=== PATIENT | male | born 1935 | race Caucasian/White ===

== ENCOUNTER → 2016-06-05 | Outpatient (CLI) | payer MEDICARE, MEDICAID ==
[~2016-06-05] MED LIST: ACET-66 PO; BIMA12.5OS OU; CLOP75 PO; COMB5OS OP; FOLI1 PO; INSNOV SQ; INSU100V12 SQ; LOSA50TA37 PO; METF10002 PO; METO-325 PO; SIMV40 PO; SITA100 PO; SUCR1TAB PO
[2016-06-05 10:27] VITALS: BP 127/60
== END | disposition home or self-care (01) ==
LOC: SRCNTR 10:01
PROVIDERS: ATTEND Internal Medicine Cardiovascular Disease
DX: I10 Essential (primary) hypertension (principal); I25.10 Atherosclerotic heart disease of native coronary artery without angina pectoris; E78.5 Hyperlipidemia, unspecified; E11.9 Type 2 diabetes mellitus without complications; I73.9 Peripheral vascular disease, unspecified; Z95.0 Presence of cardiac pacemaker; Z98.890 Other specified postprocedural states; Z89.511 Acquired absence of right leg below knee; Z89.512 Acquired absence of left leg below knee
CPT/HCPCS: G0463

== ENCOUNTER → 2016-06-19 | Outpatient (CLI) | payer MEDICARE, MEDICAID ==
[~2016-06-19] MED LIST changes: +SIMV-261 PO; -SIMV40 PO
[2016-06-19 10:37] VITALS: BP 122/63
== END | disposition home or self-care (01) ==
LOC: SRCNTR 09:49
PROVIDERS: ATTEND Internal Medicine Cardiovascular Disease
DX: Z45.018 Encounter for adjustment and management of other part of cardiac pacemaker (principal)
CPT/HCPCS: G0463

== ENCOUNTER → 2016-08-05 | Outpatient (CLI) | payer MEDICARE, MEDICAID ==
[2016-08-05 10:16] VITALS: BP 144/66
== END | disposition home or self-care (01) ==
LOC: SRCNTR 10:09
PROVIDERS: ATTEND Internal Medicine Cardiovascular Disease
DX: E11.9 Type 2 diabetes mellitus without complications (principal); I10 Essential (primary) hypertension; I25.10 Atherosclerotic heart disease of native coronary artery without angina pectoris; E78.5 Hyperlipidemia, unspecified; I73.9 Peripheral vascular disease, unspecified; Z95.0 Presence of cardiac pacemaker; Z89.511 Acquired absence of right leg below knee; Z89.612 Acquired absence of left leg above knee; Z98.890 Other specified postprocedural states
CPT/HCPCS: G0463

== ENCOUNTER → 2016-10-05 | Outpatient (CLI) | payer MEDICARE, MEDICAID ==
[2016-10-05 10:39] VITALS: BP 117/53
== END | disposition home or self-care (01) ==
LOC: SRCNTR 10:30
PROVIDERS: ATTEND Internal Medicine Cardiovascular Disease
DX: E11.9 Type 2 diabetes mellitus without complications (principal); E78.5 Hyperlipidemia, unspecified; I10 Essential (primary) hypertension; I25.10 Atherosclerotic heart disease of native coronary artery without angina pectoris; I73.9 Peripheral vascular disease, unspecified; Z95.0 Presence of cardiac pacemaker; Z89.612 Acquired absence of left leg above knee; Z89.511 Acquired absence of right leg below knee; Z79.4 Long term (current) use of insulin
CPT/HCPCS: G0463

== ENCOUNTER → 2016-12-07 | Outpatient (CLI) | payer MEDICARE, MEDICAID ==
[~2016-12-07] MED LIST changes: -METO-325 PO; +METO-558 PO; +TAMS0.4C32 PO
[2016-12-07 10:08] VITALS: BP 122/59
== END | disposition home or self-care (01) ==
LOC: SRCNTR 09:57
PROVIDERS: ATTEND Internal Medicine Cardiovascular Disease
DX: E11.9 Type 2 diabetes mellitus without complications (principal); E78.5 Hyperlipidemia, unspecified; I10 Essential (primary) hypertension; I25.10 Atherosclerotic heart disease of native coronary artery without angina pectoris; I73.9 Peripheral vascular disease, unspecified; Z79.4 Long term (current) use of insulin; Z89.511 Acquired absence of right leg below knee; Z89.612 Acquired absence of left leg above knee; Z95.0 Presence of cardiac pacemaker
CPT/HCPCS: G0463

== ENCOUNTER → 2016-12-18 | Outpatient (CLI) | payer MEDICARE, MEDICAID ==
[2016-12-18 09:56] VITALS: BP 128/63
== END | disposition home or self-care (01) ==
LOC: SRCNTR 09:49
PROVIDERS: ATTEND Internal Medicine Cardiovascular Disease
DX: Z45.018 Encounter for adjustment and management of other part of cardiac pacemaker (principal)
CPT/HCPCS: G0463

== ENCOUNTER → 2017-02-17 | Outpatient (CLI) | payer MEDICARE, MEDICAID ==
[2017-02-17 10:06] VITALS: BP 119/61
== END | disposition home or self-care (01) ==
LOC: SRCNTR 10:05
PROVIDERS: ATTEND Internal Medicine Cardiovascular Disease
DX: I10 Essential (primary) hypertension (principal); I25.10 Atherosclerotic heart disease of native coronary artery without angina pectoris; E78.5 Hyperlipidemia, unspecified; E11.51 Type 2 diabetes mellitus with diabetic peripheral angiopathy without gangrene; E03.9 Hypothyroidism, unspecified; I73.9 Peripheral vascular disease, unspecified; Z79.4 Long term (current) use of insulin; Z89.511 Acquired absence of right leg below knee; Z89.612 Acquired absence of left leg above knee; Z95.0 Presence of cardiac pacemaker
CPT/HCPCS: G0463

== ENCOUNTER → 2017-04-21 | Outpatient (CLI) | payer MEDICARE, MEDICAID ==
[~2017-04-21] MED LIST changes: -METF10002 PO
[2017-04-21 11:05] VITALS: BP 143/68
== END | disposition home or self-care (01) ==
LOC: SRCNTR 10:46
PROVIDERS: ATTEND Internal Medicine Cardiovascular Disease
DX: I10 Essential (primary) hypertension (principal); E11.51 Type 2 diabetes mellitus with diabetic peripheral angiopathy without gangrene; E78.5 Hyperlipidemia, unspecified; I25.10 Atherosclerotic heart disease of native coronary artery without angina pectoris; Z79.4 Long term (current) use of insulin; Z89.511 Acquired absence of right leg below knee; Z89.612 Acquired absence of left leg above knee; Z95.0 Presence of cardiac pacemaker
CPT/HCPCS: G0463

== ENCOUNTER → 2017-06-18 | Outpatient (CLI) | payer MEDICARE, MEDICAID ==
[2017-06-18 10:37] VITALS: BP 140/58
== END | disposition home or self-care (01) ==
LOC: SRCNTR 10:05
PROVIDERS: ATTEND Internal Medicine Cardiovascular Disease
DX: Z45.018 Encounter for adjustment and management of other part of cardiac pacemaker (principal)
CPT/HCPCS: 93288; G0463

== ENCOUNTER → 2017-06-21 | Outpatient (CLI) | payer MEDICARE, MEDICAID ==
[2017-06-21 10:40] VITALS: BP 120/54
== END | disposition home or self-care (01) ==
LOC: SRCNTR 10:34
PROVIDERS: ATTEND Internal Medicine Cardiovascular Disease
DX: I25.10 Atherosclerotic heart disease of native coronary artery without angina pectoris (principal); I12.9 Hypertensive chronic kidney disease with stage 1 through stage 4 chronic kidney disease, or unspecified chronic kidney disease; N18.9 Chronic kidney disease, unspecified; E78.5 Hyperlipidemia, unspecified; E11.51 Type 2 diabetes mellitus with diabetic peripheral angiopathy without gangrene; Z79.4 Long term (current) use of insulin; Z89.511 Acquired absence of right leg below knee; Z89.612 Acquired absence of left leg above knee; Z95.0 Presence of cardiac pacemaker
CPT/HCPCS: G0463

== ENCOUNTER → 2017-08-23 | Outpatient (CLI) | payer MEDICARE, MEDICAID ==
[2017-08-23 11:10] VITALS: BP 127/56
== END | disposition home or self-care (01) ==
LOC: SRCNTR 10:58
PROVIDERS: ATTEND Internal Medicine Cardiovascular Disease
DX: I10 Essential (primary) hypertension (principal); I25.10 Atherosclerotic heart disease of native coronary artery without angina pectoris; E11.9 Type 2 diabetes mellitus without complications; E78.5 Hyperlipidemia, unspecified; I73.9 Peripheral vascular disease, unspecified; Z95.0 Presence of cardiac pacemaker
CPT/HCPCS: G0463

== ENCOUNTER → 2017-12-17 | Outpatient (CLI) | payer MEDICARE, MEDICAID ==
[~2017-12-17] MED LIST changes: +LOSA50TA25 PO; -LOSA50TA37 PO; +METF-446 PO; +MULT-1259 PO
[2017-12-17 15:05] VITALS: BP 128/52
== END | disposition home or self-care (01) ==
LOC: SRCNTR 09:57
PROVIDERS: ATTEND Internal Medicine Cardiovascular Disease
DX: Z45.018 Encounter for adjustment and management of other part of cardiac pacemaker (principal)
CPT/HCPCS: G0463

== ENCOUNTER → 2017-12-24 | Outpatient (CLI) | payer MEDICARE, MEDICAID ==
[2017-12-24 10:37] VITALS: BP 117/59
== END | disposition home or self-care (01) ==
LOC: SRCNTR 10:33
PROVIDERS: ATTEND Internal Medicine Cardiovascular Disease
DX: Z23 Encounter for immunization (principal); I25.10 Atherosclerotic heart disease of native coronary artery without angina pectoris; E11.9 Type 2 diabetes mellitus without complications; I10 Essential (primary) hypertension; E78.5 Hyperlipidemia, unspecified; I73.9 Peripheral vascular disease, unspecified; Z89.612 Acquired absence of left leg above knee; Z95.0 Presence of cardiac pacemaker
CPT/HCPCS: 90686; 96372; G0463

== ENCOUNTER → 2018-02-23 | Outpatient (CLI) | payer MEDICARE, MEDICAID ==
[~2018-02-23] MED LIST changes: -LOSA50TA25 PO; +LOSA50TA64 PO
[2018-02-23 10:21] VITALS: BP 118/52
== END | disposition home or self-care (01) ==
LOC: SRCNTR 10:17
PROVIDERS: ATTEND Internal Medicine Cardiovascular Disease
DX: I25.10 Atherosclerotic heart disease of native coronary artery without angina pectoris (principal); E78.5 Hyperlipidemia, unspecified; E11.51 Type 2 diabetes mellitus with diabetic peripheral angiopathy without gangrene; Z95.0 Presence of cardiac pacemaker; I10 Essential (primary) hypertension; Z89.612 Acquired absence of left leg above knee; Z89.511 Acquired absence of right leg below knee
CPT/HCPCS: G0463

== ENCOUNTER → 2018-05-02 | Outpatient (CLI) | payer MEDICARE, MEDICAID ==
[~2018-05-02] MED LIST changes: -CLOP75 PO; +CLOP75TA17 PO
[2018-05-02 11:43] VITALS: BP 116/54
== END | disposition home or self-care (01) ==
LOC: SRCNTR 11:12
PROVIDERS: ATTEND Internal Medicine Cardiovascular Disease
DX: E78.5 Hyperlipidemia, unspecified (principal); E11.9 Type 2 diabetes mellitus without complications; I73.9 Peripheral vascular disease, unspecified; I10 Essential (primary) hypertension; I25.10 Atherosclerotic heart disease of native coronary artery without angina pectoris; Z95.0 Presence of cardiac pacemaker
CPT/HCPCS: G0463

== ENCOUNTER → 2018-05-27 | Outpatient (CLI) | payer MEDICARE, MEDICAID ==
[~2018-05-27] MED LIST changes: -CLOP75TA17 PO; +CLOP75TA3 PO
[2018-05-27 11:55] VITALS: BP 114/47
== END | disposition home or self-care (01) ==
LOC: SRCNTR 10:14
PROVIDERS: ATTEND Internal Medicine Cardiovascular Disease
DX: Z45.09 Encounter for adjustment and management of other cardiac device (principal)
CPT/HCPCS: G0463

== ENCOUNTER → 2019-01-04 | Outpatient (CLI) | payer MEDICARE, MEDICAID ==
[~2019-01-04] MED LIST changes: +TAMS-13 PO; -TAMS0.4C32 PO
[2019-01-04 10:18] VITALS: BP 98/56
== END | disposition home or self-care (01) ==
LOC: SRCNTR 10:18
PROVIDERS: ATTEND Internal Medicine Cardiovascular Disease
DX: I25.10 Atherosclerotic heart disease of native coronary artery without angina pectoris (principal); I10 Essential (primary) hypertension; E11.9 Type 2 diabetes mellitus without complications; E78.5 Hyperlipidemia, unspecified; Z95.0 Presence of cardiac pacemaker; I73.9 Peripheral vascular disease, unspecified
CPT/HCPCS: G0463

== ENCOUNTER → 2019-04-04 | Outpatient (CLI) | payer MEDICARE, MEDICAID ==
[2019-04-04 14:17] VITALS: BP 107/48
== END | disposition home or self-care (01) ==
LOC: SRCNTR 14:15
PROVIDERS: ATTEND Internal Medicine Cardiovascular Disease
DX: I25.10 Atherosclerotic heart disease of native coronary artery without angina pectoris (principal); I10 Essential (primary) hypertension; I11.9 Hypertensive heart disease without heart failure; E78.5 Hyperlipidemia, unspecified; I73.9 Peripheral vascular disease, unspecified; Z95.0 Presence of cardiac pacemaker
CPT/HCPCS: G0463

== ENCOUNTER → 2019-06-23 | Outpatient (CLI) | payer MEDICARE, MEDICAID ==
[~2019-06-23] MED LIST changes: +LOSA-88 PO; -LOSA50TA64 PO
== END | disposition home or self-care (01) ==
LOC: SRCNTR 11:57
PROVIDERS: ATTEND Internal Medicine Cardiovascular Disease
DX: I25.10 Atherosclerotic heart disease of native coronary artery without angina pectoris (principal); I73.9 Peripheral vascular disease, unspecified; I10 Essential (primary) hypertension; E11.9 Type 2 diabetes mellitus without complications; E78.5 Hyperlipidemia, unspecified; Z48.812 Encounter for surgical aftercare following surgery on the circulatory system; Z95.810 Presence of automatic (implantable) cardiac defibrillator; Z79.84 Long term (current) use of oral hypoglycemic drugs; Z79.899 Other long term (current) drug therapy; Z98.890 Other specified postprocedural states; Z89.612 Acquired absence of left leg above knee; Z89.511 Acquired absence of right leg below knee
CPT/HCPCS: G0463

== ENCOUNTER → 2019-08-18 | Outpatient (CLI) | payer MEDICARE, MEDICAID ==
[~2019-08-18] MED LIST changes: +FOLI-130 PO; -FOLI1 PO; -LOSA-88 PO; +LOSA50TA37 PO
[2019-08-18 12:45] VITALS: BP 107/78
== END | disposition home or self-care (01) ==
LOC: SRCNTR 10:15
PROVIDERS: ATTEND Internal Medicine Cardiovascular Disease
DX: I25.10 Atherosclerotic heart disease of native coronary artery without angina pectoris (principal)
CPT/HCPCS: G0463

== ENCOUNTER → 2020-01-17 | Outpatient (CLI) | payer MEDICARE, MEDICAID ==
[~2020-01-17] MED LIST changes: +CLOP-31 PO; -CLOP75TA3 PO
[2020-01-17 11:29] VITALS: BP 109/5
== END | disposition home or self-care (01) ==
LOC: SRCNTR 11:10
PROVIDERS: ATTEND Internal Medicine Cardiovascular Disease
DX: I25.10 Atherosclerotic heart disease of native coronary artery without angina pectoris (principal); I10 Essential (primary) hypertension; E11.9 Type 2 diabetes mellitus without complications; I73.9 Peripheral vascular disease, unspecified; Z89.511 Acquired absence of right leg below knee; Z95.0 Presence of cardiac pacemaker
CPT/HCPCS: G0463; Z7500

== ENCOUNTER → 2020-02-16 | Outpatient (CLI) | payer MEDICARE, MEDICAID ==
[2020-02-16 10:00] VITALS: BP 114/57
== END | disposition home or self-care (01) ==
LOC: SRCNTR 09:37
PROVIDERS: ATTEND Internal Medicine Cardiovascular Disease
DX: Z45.010 Encounter for checking and testing of cardiac pacemaker pulse generator [battery] (principal)
CPT/HCPCS: 93288; G0463

== ENCOUNTER → 2020-04-03 | Outpatient (CLI) | payer MEDICARE, MEDICAID ==
[~2020-04-03] MED LIST changes: -CLOP-31 PO; +CLOP75TA60 PO
[2020-04-03 10:40] VITALS: BP 108/45
== END | disposition home or self-care (01) ==
LOC: SRCNTR 10:17
PROVIDERS: ATTEND Internal Medicine Cardiovascular Disease
DX: I25.10 Atherosclerotic heart disease of native coronary artery without angina pectoris (principal); E11.9 Type 2 diabetes mellitus without complications; I10 Essential (primary) hypertension; E78.5 Hyperlipidemia, unspecified; I73.9 Peripheral vascular disease, unspecified; N40.1 Benign prostatic hyperplasia with lower urinary tract symptoms; R33.8 Other retention of urine; Z95.0 Presence of cardiac pacemaker; Z98.890 Other specified postprocedural states
CPT/HCPCS: G0463; Z7500

== ENCOUNTER → 2020-06-05 | Outpatient (CLI) | payer MEDICARE, MEDICAID ==
[2020-06-05 10:05] VITALS: BP 129/61
== END | disposition home or self-care (01) ==
LOC: SRCNTR 09:48
PROVIDERS: ATTEND Internal Medicine Cardiovascular Disease
DX: I10 Essential (primary) hypertension (principal); E11.9 Type 2 diabetes mellitus without complications; E78.5 Hyperlipidemia, unspecified; I25.10 Atherosclerotic heart disease of native coronary artery without angina pectoris; I73.9 Peripheral vascular disease, unspecified; N40.1 Benign prostatic hyperplasia with lower urinary tract symptoms; R33.8 Other retention of urine; Z89.612 Acquired absence of left leg above knee; Z89.511 Acquired absence of right leg below knee; Z95.0 Presence of cardiac pacemaker
CPT/HCPCS: G0463; Z7500

== ENCOUNTER → 2020-08-07 | Outpatient (CLI) | payer MEDICARE, MEDICAID ==
[~2020-08-07] MED LIST changes: +FERR-89 PO; -INSNOV SQ
[2020-08-07 10:27] VITALS: BP 125/52
== END | disposition home or self-care (01) ==
LOC: SRCNTR 10:00
PROVIDERS: ATTEND Internal Medicine Cardiovascular Disease
DX: I10 Essential (primary) hypertension (principal); E78.5 Hyperlipidemia, unspecified; I73.9 Peripheral vascular disease, unspecified; I25.10 Atherosclerotic heart disease of native coronary artery without angina pectoris; N40.0 Benign prostatic hyperplasia without lower urinary tract symptoms; Z89.612 Acquired absence of left leg above knee; Z89.421 Acquired absence of other right toe(s)
CPT/HCPCS: G0463

== ENCOUNTER → 2020-09-11 | Outpatient (CLI) | payer MEDICARE, MEDICAID ==
[2020-09-11 10:26] VITALS: BP 131/52
== END | disposition home or self-care (01) ==
LOC: SRCNTR 09:33
PROVIDERS: ATTEND Internal Medicine Cardiovascular Disease
DX: Z45.010 Encounter for checking and testing of cardiac pacemaker pulse generator [battery] (principal)
CPT/HCPCS: G0463

== ENCOUNTER → 2020-10-09 | Outpatient (CLI) | payer MEDICARE, MEDICAID ==
[~2020-10-09] MED LIST changes: +APIX2.5T PO; +CYCL1DRO6 OU
[2020-10-09 10:12] VITALS: BP 107/54
== END | disposition home or self-care (01) ==
LOC: SRCNTR 09:38
PROVIDERS: ATTEND Internal Medicine Cardiovascular Disease
DX: I25.10 Atherosclerotic heart disease of native coronary artery without angina pectoris (principal); I48.0 Paroxysmal atrial fibrillation; E11.9 Type 2 diabetes mellitus without complications; I10 Essential (primary) hypertension; E78.5 Hyperlipidemia, unspecified; I73.9 Peripheral vascular disease, unspecified; N40.0 Benign prostatic hyperplasia without lower urinary tract symptoms; Z95.0 Presence of cardiac pacemaker; Z89.511 Acquired absence of right leg below knee; Z89.612 Acquired absence of left leg above knee; Z95.1 Presence of aortocoronary bypass graft; Z79.84 Long term (current) use of oral hypoglycemic drugs; Z79.899 Other long term (current) drug therapy
CPT/HCPCS: G0463

== ENCOUNTER → 2020-11-25 | Outpatient (CLI) | payer MEDICARE, MEDICAID ==
[~2020-11-25] MED LIST changes: -BIMA12.5OS OU; +BIMA2.5D4 OU; -CLOP75TA60 PO; +INFLUENZA VIRUS VACCINE QVS 2021-22 (6MO+)/PF 60 MCG/0.5 ML SYRINGE IM. ONE
[2020-11-25 10:34] VITALS: BP 116/48
== END | disposition home or self-care (01) ==
LOC: SRCNTR 09:41
PROVIDERS: ATTEND Internal Medicine Cardiovascular Disease
DX: I10 Essential (primary) hypertension (principal); I25.10 Atherosclerotic heart disease of native coronary artery without angina pectoris; E11.9 Type 2 diabetes mellitus without complications; E78.5 Hyperlipidemia, unspecified; I48.0 Paroxysmal atrial fibrillation; I73.9 Peripheral vascular disease, unspecified; Z89.612 Acquired absence of left leg above knee; Z89.611 Acquired absence of right leg above knee; Z95.0 Presence of cardiac pacemaker
CPT/HCPCS: 90686; 96372; G0463

== ENCOUNTER → 2021-01-29 | Outpatient (CLI) | payer MEDICARE, MEDICAID ==
[~2021-01-29] MED LIST changes: +DIPH-654 PO; -INFLUENZA VIRUS VACCINE QVS 2021-22 (6MO+)/PF 60 MCG/0.5 ML SYRINGE IM. ONE
[2021-01-29 10:59] VITALS: BP 132/52
== END | disposition home or self-care (01) ==
LOC: SRCNTR 10:35
PROVIDERS: ATTEND Internal Medicine Cardiovascular Disease
DX: I25.10 Atherosclerotic heart disease of native coronary artery without angina pectoris (principal); I48.0 Paroxysmal atrial fibrillation; E11.9 Type 2 diabetes mellitus without complications; I10 Essential (primary) hypertension; E78.5 Hyperlipidemia, unspecified; I73.9 Peripheral vascular disease, unspecified; N40.0 Benign prostatic hyperplasia without lower urinary tract symptoms; Z89.612 Acquired absence of left leg above knee; Z89.511 Acquired absence of right leg below knee; Z95.0 Presence of cardiac pacemaker
CPT/HCPCS: G0463

== ENCOUNTER → 2021-03-21 | Outpatient (CLI) | payer MEDICARE, MEDICAID ==
[~2021-03-21] MED LIST changes: +LOSA-382 PO; -LOSA50TA37 PO
== END | disposition home or self-care (01) ==
LOC: SRCNTR 09-04 09:56
PROVIDERS: ATTEND Internal Medicine Cardiovascular Disease
DX: Z45.010 Encounter for checking and testing of cardiac pacemaker pulse generator [battery] (principal)
CPT/HCPCS: G0463; Z7500

== ENCOUNTER → 2021-05-02 | Outpatient (CLI) | payer MEDICARE, MEDICAID ==
[2021-05-02 10:59] VITALS: BP 121/49
== END | disposition home or self-care (01) ==
LOC: SRCNTR 10:44
PROVIDERS: ATTEND Internal Medicine Cardiovascular Disease
DX: I25.10 Atherosclerotic heart disease of native coronary artery without angina pectoris (principal); E11.9 Type 2 diabetes mellitus without complications; I10 Essential (primary) hypertension; E78.5 Hyperlipidemia, unspecified; I73.9 Peripheral vascular disease, unspecified; N40.0 Benign prostatic hyperplasia without lower urinary tract symptoms; Z89.522 Acquired absence of left knee; Z89.521 Acquired absence of right knee; Z95.0 Presence of cardiac pacemaker
CPT/HCPCS: G0463; Z7500

== ENCOUNTER → 2021-06-13 | Outpatient (CLI) | payer MEDICARE, MEDICAID ==
[2021-06-13 11:35] VITALS: BP 104/34
== END | disposition home or self-care (01) ==
LOC: SRCNTR 10:38
PROVIDERS: ATTEND Internal Medicine Cardiovascular Disease
DX: I10 Essential (primary) hypertension (principal); E78.5 Hyperlipidemia, unspecified; I73.9 Peripheral vascular disease, unspecified; E11.9 Type 2 diabetes mellitus without complications; I48.0 Paroxysmal atrial fibrillation; I25.10 Atherosclerotic heart disease of native coronary artery without angina pectoris; Z95.0 Presence of cardiac pacemaker; Z89.511 Acquired absence of right leg below knee; Z89.612 Acquired absence of left leg above knee
CPT/HCPCS: G0463

== ENCOUNTER → 2021-08-27 | Outpatient (CLI) | payer MEDICARE, MEDICAID ==
[~2021-08-27] MED LIST changes: -FERR-89 PO; +FERR325T27 PO
[2021-08-27 11:36] VITALS: BP 122/55
== END | disposition home or self-care (01) ==
LOC: SRCNTR 11:22
PROVIDERS: ATTEND Internal Medicine Cardiovascular Disease
DX: Z09 Encounter for follow-up examination after completed treatment for conditions other than malignant neoplasm (principal); I10 Essential (primary) hypertension; E11.9 Type 2 diabetes mellitus without complications; E78.5 Hyperlipidemia, unspecified; I73.9 Peripheral vascular disease, unspecified; I25.10 Atherosclerotic heart disease of native coronary artery without angina pectoris; I48.0 Paroxysmal atrial fibrillation; Z95.0 Presence of cardiac pacemaker; Z89.511 Acquired absence of right leg below knee; Z89.612 Acquired absence of left leg above knee
CPT/HCPCS: G0463

== ENCOUNTER → 2021-10-01 | Outpatient (CLI) | payer MEDICARE, MEDICAID ==
[2021-10-01 10:05] VITALS: BP 102/47
== END | disposition home or self-care (01) ==
LOC: SRCNTR 09:43
PROVIDERS: ATTEND Internal Medicine Cardiovascular Disease
DX: Z45.010 Encounter for checking and testing of cardiac pacemaker pulse generator [battery] (principal)
CPT/HCPCS: G0463

== ENCOUNTER → 2021-10-29 | Outpatient (CLI) | payer MEDICARE, MEDICAID ==
[2021-10-29 09:43] VITALS: BP 116/48
== END | disposition home or self-care (01) ==
LOC: SRCNTR 09:01
PROVIDERS: ATTEND Internal Medicine Cardiovascular Disease
DX: I10 Essential (primary) hypertension (principal); Z09 Encounter for follow-up examination after completed treatment for conditions other than malignant neoplasm; E11.9 Type 2 diabetes mellitus without complications; I48.0 Paroxysmal atrial fibrillation; I25.10 Atherosclerotic heart disease of native coronary artery without angina pectoris; E78.5 Hyperlipidemia, unspecified; I73.9 Peripheral vascular disease, unspecified; Z95.0 Presence of cardiac pacemaker; Z89.612 Acquired absence of left leg above knee; Z89.511 Acquired absence of right leg below knee
CPT/HCPCS: G0463; Z7500

== ENCOUNTER → 2022-01-05 | Outpatient (CLI) | payer MEDICARE, MEDICAID ==
[2022-01-05 14:17] VITALS: BP 120/49
== END | disposition home or self-care (01) ==
LOC: SRCNTR 11:29
PROVIDERS: ATTEND Internal Medicine Cardiovascular Disease
DX: Z45.010 Encounter for checking and testing of cardiac pacemaker pulse generator [battery] (principal)
CPT/HCPCS: G0463; Z7500

== ENCOUNTER → 2022-01-07 | Outpatient (CLI) | payer MEDICARE, MEDICAID ==
[2022-01-07 10:21] VITALS: BP 116/44
== END | disposition home or self-care (01) ==
LOC: SRCNTR 09:52
PROVIDERS: ATTEND Internal Medicine Cardiovascular Disease
DX: I10 Essential (primary) hypertension (principal); Z09 Encounter for follow-up examination after completed treatment for conditions other than malignant neoplasm; I25.10 Atherosclerotic heart disease of native coronary artery without angina pectoris; E11.9 Type 2 diabetes mellitus without complications; I48.0 Paroxysmal atrial fibrillation; E78.5 Hyperlipidemia, unspecified; I73.9 Peripheral vascular disease, unspecified; Z95.0 Presence of cardiac pacemaker; Z89.612 Acquired absence of left leg above knee; Z89.511 Acquired absence of right leg below knee
CPT/HCPCS: G0463; Z7500

== ENCOUNTER → 2022-03-11 | Outpatient (CLI) | payer MEDICARE, MEDICAID ==
[~2022-03-11] MED LIST changes: -CYCL1DRO6 OU; +DOCU-385 PO; +FINA-27 PO
[2022-03-11 10:50] VITALS: BP 117/57
== END | disposition home or self-care (01) ==
LOC: SRCNTR 10:27
PROVIDERS: ATTEND Internal Medicine Cardiovascular Disease
DX: Z09 Encounter for follow-up examination after completed treatment for conditions other than malignant neoplasm (principal); I25.10 Atherosclerotic heart disease of native coronary artery without angina pectoris; I48.0 Paroxysmal atrial fibrillation; E11.9 Type 2 diabetes mellitus without complications; I10 Essential (primary) hypertension; E78.5 Hyperlipidemia, unspecified; I73.9 Peripheral vascular disease, unspecified; Z95.0 Presence of cardiac pacemaker
CPT/HCPCS: G0463

== ENCOUNTER → 2022-04-06 | Outpatient (CLI) | payer MEDICARE, MEDICAID ==
[2022-04-06 10:28] VITALS: BP 112/54
== END | disposition home or self-care (01) ==
LOC: SRCNTR 09:56
PROVIDERS: ATTEND Internal Medicine Cardiovascular Disease
DX: Z45.010 Encounter for checking and testing of cardiac pacemaker pulse generator [battery] (principal); I25.10 Atherosclerotic heart disease of native coronary artery without angina pectoris; I48.0 Paroxysmal atrial fibrillation; I10 Essential (primary) hypertension; E11.9 Type 2 diabetes mellitus without complications; E78.5 Hyperlipidemia, unspecified; Z89.612 Acquired absence of left leg above knee; Z89.512 Acquired absence of left leg below knee
CPT/HCPCS: 93288; G0463

== ENCOUNTER → 2022-04-20 | Outpatient (CLI) | payer MEDICARE, MEDICAID ==
[2022-04-20 10:20] VITALS: BP 130/71
== END | disposition home or self-care (01) ==
LOC: SRCNTR 10:09
PROVIDERS: ATTEND Internal Medicine Cardiovascular Disease
DX: Z09 Encounter for follow-up examination after completed treatment for conditions other than malignant neoplasm (principal); I25.10 Atherosclerotic heart disease of native coronary artery without angina pectoris; I48.0 Paroxysmal atrial fibrillation; E11.9 Type 2 diabetes mellitus without complications; I10 Essential (primary) hypertension; E78.5 Hyperlipidemia, unspecified; I73.9 Peripheral vascular disease, unspecified; Z95.0 Presence of cardiac pacemaker; Z89.612 Acquired absence of left leg above knee; Z89.511 Acquired absence of right leg below knee
CPT/HCPCS: G0463

== ENCOUNTER → 2022-05-18 | Outpatient (CLI) | payer MEDICARE, MEDICAID ==
[2022-05-18 10:02] VITALS: BP 110/47
== END | disposition home or self-care (01) ==
LOC: SRCNTR 09:36
PROVIDERS: ATTEND Internal Medicine Cardiovascular Disease
DX: I25.10 Atherosclerotic heart disease of native coronary artery without angina pectoris (principal); I48.0 Paroxysmal atrial fibrillation; E11.9 Type 2 diabetes mellitus without complications; I10 Essential (primary) hypertension; E78.5 Hyperlipidemia, unspecified; I73.9 Peripheral vascular disease, unspecified; R41.81 Age-related cognitive decline; Z95.0 Presence of cardiac pacemaker; Z89.612 Acquired absence of left leg above knee; Z89.511 Acquired absence of right leg below knee
CPT/HCPCS: G0463; Z7500

== ENCOUNTER → 2022-07-31 | Outpatient (CLI) | payer MEDICARE, MEDICAID ==
[~2022-07-31] MED LIST changes: -SUCR1TAB PO
[2022-07-31 11:25] VITALS: BP 122/56
== END | disposition home or self-care (01) ==
LOC: SRCNTR 10:41
PROVIDERS: ATTEND Internal Medicine Cardiovascular Disease
DX: Z09 Encounter for follow-up examination after completed treatment for conditions other than malignant neoplasm (principal); I25.10 Atherosclerotic heart disease of native coronary artery without angina pectoris; I48.0 Paroxysmal atrial fibrillation; E11.9 Type 2 diabetes mellitus without complications; I10 Essential (primary) hypertension; E78.5 Hyperlipidemia, unspecified; I73.9 Peripheral vascular disease, unspecified; R41.81 Age-related cognitive decline; Z95.0 Presence of cardiac pacemaker; Z89.612 Acquired absence of left leg above knee; Z89.511 Acquired absence of right leg below knee
CPT/HCPCS: G0463

== ENCOUNTER → 2022-10-19 | Outpatient (CLI) | payer MEDICARE, MEDICAID ==
[~2022-10-19] VITALS: Ht 162.6 cm; Wt 76.0 kg
[~2022-10-19] MED LIST changes: +INSNPH SQ
[2022-10-19 10:24] VITALS: BP 107/58; PULSE 78; RESP 18; TEMP 98.8; O2SAT 98
== END | disposition home or self-care (01) ==
LOC: SRCNTR 09:52
PROVIDERS: ATTEND Internal Medicine Cardiovascular Disease
DX: Z45.010 Encounter for checking and testing of cardiac pacemaker pulse generator [battery] (principal)
CPT/HCPCS: G0463

== ENCOUNTER → 2022-12-07 | Outpatient (CLI) | payer MEDICARE, MEDICAID ==
[~2022-12-07] MED LIST changes: +RIFAX550 PO; -TAMS-13 PO; +TAMS0.4C34 PO
[2022-12-07 10:51] VITALS: BP 130/70; PULSE 64; RESP 16; TEMP 97.9; O2SAT 98
== END | disposition home or self-care (01) ==
LOC: SRCNTR 10:33
PROVIDERS: ATTEND Internal Medicine Cardiovascular Disease
DX: Z09 Encounter for follow-up examination after completed treatment for conditions other than malignant neoplasm (principal); I25.10 Atherosclerotic heart disease of native coronary artery without angina pectoris; I48.0 Paroxysmal atrial fibrillation; E11.9 Type 2 diabetes mellitus without complications; I10 Essential (primary) hypertension; E78.5 Hyperlipidemia, unspecified; I73.9 Peripheral vascular disease, unspecified; R41.81 Age-related cognitive decline; Z95.0 Presence of cardiac pacemaker
CPT/HCPCS: G0463; Z7500

== ENCOUNTER → 2023-02-09 | Outpatient (CLI) | payer MEDICARE, MEDICAID ==
[~2023-02-09] MED LIST changes: +BRIM5DRO28 OP; -COMB5OS OP; -DIPH-654 PO; -FERR325T27 PO; -FOLI-130 PO; -TAMS0.4C34 PO; +TAMS0.4C94 PO
[2023-02-09 15:06] VITALS: BP 119/52; PULSE 70; RESP 18; TEMP 98.3; O2SAT 97
== END | disposition home or self-care (01) ==
LOC: SRCNTR 14:54
PROVIDERS: ATTEND Internal Medicine Cardiovascular Disease
DX: I48.0 Paroxysmal atrial fibrillation (principal); I10 Essential (primary) hypertension; E78.5 Hyperlipidemia, unspecified; I73.9 Peripheral vascular disease, unspecified; Z95.1 Presence of aortocoronary bypass graft; I25.10 Atherosclerotic heart disease of native coronary artery without angina pectoris; Z82.49 Family history of ischemic heart disease and other diseases of the circulatory system; Z79.84 Long term (current) use of oral hypoglycemic drugs; Z79.899 Other long term (current) drug therapy; Z09 Encounter for follow-up examination after completed treatment for conditions other than malignant neoplasm
CPT/HCPCS: G0463; Z7500

== ENCOUNTER → 2023-04-26 | Outpatient (CLI) | payer MEDICARE, MEDICAID ==
[2023-04-26 11:26] VITALS: BP 100/40; PULSE 72; RESP 16; TEMP 98.4; O2SAT 97
== END | disposition home or self-care (01) ==
LOC: SRCNTR 11:03
PROVIDERS: ATTEND Internal Medicine Cardiovascular Disease
DX: Z09 Encounter for follow-up examination after completed treatment for conditions other than malignant neoplasm (principal); I25.10 Atherosclerotic heart disease of native coronary artery without angina pectoris; I48.0 Paroxysmal atrial fibrillation; I10 Essential (primary) hypertension; E11.51 Type 2 diabetes mellitus with diabetic peripheral angiopathy without gangrene; R41.81 Age-related cognitive decline; Z79.01 Long term (current) use of anticoagulants; Z89.612 Acquired absence of left leg above knee; Z89.511 Acquired absence of right leg below knee
CPT/HCPCS: G0463

== ENCOUNTER → 2023-06-28 | Outpatient (CLI) | payer MEDICARE, MEDICAID ==
[~2023-06-28] MED LIST changes: +METO-325 PO; -METO-558 PO
[2023-06-28 10:53] VITALS: BP 124/46; PULSE 68; RESP 18; TEMP 98.7; O2SAT 98
== END | disposition home or self-care (01) ==
LOC: SRCNTR 10:18
PROVIDERS: ATTEND Internal Medicine Cardiovascular Disease
DX: I10 Essential (primary) hypertension (principal); I25.10 Atherosclerotic heart disease of native coronary artery without angina pectoris; E11.9 Type 2 diabetes mellitus without complications; E78.5 Hyperlipidemia, unspecified; I48.0 Paroxysmal atrial fibrillation; I73.9 Peripheral vascular disease, unspecified; Z95.0 Presence of cardiac pacemaker; Z79.4 Long term (current) use of insulin; Z79.899 Other long term (current) drug therapy; Z79.84 Long term (current) use of oral hypoglycemic drugs
CPT/HCPCS: G0463

== ENCOUNTER → 2023-08-30 | Outpatient (CLI) | payer MEDICARE, MEDICAID ==
[2023-08-30 11:37] VITALS: BP 93/41; PULSE 68; RESP 22; TEMP 98.2; O2SAT 97
== END | disposition home or self-care (01) ==
LOC: SRCNTR 11:05
PROVIDERS: ATTEND Internal Medicine Cardiovascular Disease
DX: I25.10 Atherosclerotic heart disease of native coronary artery without angina pectoris (principal); Z09 Encounter for follow-up examination after completed treatment for conditions other than malignant neoplasm; I48.0 Paroxysmal atrial fibrillation; I10 Essential (primary) hypertension; E78.5 Hyperlipidemia, unspecified; E11.51 Type 2 diabetes mellitus with diabetic peripheral angiopathy without gangrene; R41.81 Age-related cognitive decline; Z95.0 Presence of cardiac pacemaker; Z89.612 Acquired absence of left leg above knee; Z89.511 Acquired absence of right leg below knee
CPT/HCPCS: G0463